=== PATIENT | female | born 1975 | race Hispanic/Latino ===

== ENCOUNTER 2017-10-21 08:20 | Day surgery (SDC) | payer MEDICAID ==
[~2017-10-21 08:20] MED LIST: NACL 0.9% 1000 ML 1,000 ML IV SCH
[2017-10-21] MEDS ORDERED: HURRICAINE ONE 20% TOPICAL SPRAY MM ×2 (08:35→16:12)
--- NOTE | 2017-10-21 08:43 | Anesthesia Consultation ---
Anesthesia Consult and Med Hx Date of service: 10/21/17 - Airway Anesthetic Teeth Evaluation: Edentulous ROM Head & Neck: Adequate Mental/Hyoid Distance: Adequate Mallampati Class: Class II Intubation Access Assessment: Probably Good - Pulmonary Exam CTA: Yes - Cardiac Exam Cardiac Exam: RRR - Pre-Operative Health Status ASA Pre-Surgery Classification: ASA3 Proposed Anesthetic Plan: MAC - Pulmonary Hx Asthma: Yes (inhaler used this morning ) Hx Sleep Apnea: Yes (cpap) - Cardiovascular System Hx Hypertension: Yes - Central Nervous System Hx Psychiatric Problems: Yes (bipolar ) - Gastrointestinal Hx Gastroesophageal Reflux Disease: Yes
--- NOTE | 2017-10-21 08:44 | Anesthesia Day of Surgery ---
Anesthesia Day of Surgery - Day of Surgery Patient Examined: Yes Patient H&P Reviewed: Yes Patient is NPO: Yes
[2017-10-21] MEDS ORDERED: DIPRIVAN 10 MG/ML IV ONE ×2 (08:45)
[2017-10-21] MEDS ORDERED: ZOFRAN ONE (08:46)
--- NOTE | 2017-10-21 09:04 | Operative Report ---
Operative Report Operative Report: EGD Post bypass DATE: 10/21/17 OPERATIVE REPORT - EGD PREOP DIAGNOSIS: gastric dyspepsia POSTOP DIAGNOSIS: same SURGERY: Upper endoscopy. SURGEON: Dr. Torsten Painter. PATROL INSPECTOR: Dr. Lea M.D. TYPE OF ANESTHESIA: MAC. ESTIMATED BLOOD LOSS: None. COMPLICATIONS: None. SPECIMENS REMOVED: None. FINDINGS: 1. normal esophagus 2. gastric pouch - 50ml 3. gastrojejunal anastomosis is 20mm INDICATIONS:INDICATION FOR PROCEDURE: Patient is a 42-year-old F s/p gastric bypass in 2013. The patient is here today for evaluation for revisional surgery. The patient is here for a planned EGD for gastric dyspepsia. PROCEDURE DETAILS: After consent was reviewed, patient was taken back to the operating room where patient was placed in the left lateral decubitus position and a bite block was placed in the mouth. After a time-out was called, MAC anesthesia was initiated. I then passed the endoscope into the patients oropharynx, into the esophagus, visualized the entire esophagus, which was all within normal limits. I then visualized the gastric pouch which was normal and about 50ml in size. The gastrojejunal anastomosis was normal at about 20mm. The proximal portion of the arron limb was normal. I then desufflated the gastric pouch and removed the endoscope. Patient tolerated procedure well and was transferred to recovery room in good and stable condition
[2017-10-21] MEDS ORDERED: PROVENTIL IH ONE (09:05)
--- NOTE | 2017-10-21 09:05 | Discharge Summary ---
Providers - Providers Attending physician: NADIRA DELGADO Primary care physician: DULCE MCKINNEY Hospitalization Procedures: egd Hospital course: 42 y.o. F presented to the hospital for an egd. She tolerated the procedure and was discharged home the same day. Disposition: DC-01 TO HOME OR SELFCARE Core Measure Documentation - Palliative Care Palliative Care/ Comfort Measures: Not Applicable - Core Measures Any of the following diagnoses?: none Exam - Physical Exam Narrative exam: no change from prior - Constitutional Vitals: Temp Pulse Resp BP Pulse Ox 97.9 F 75 13 163/95 100 10/21/17 08:14 10/21/17 08:14 10/21/17 08:14 10/21/17 08:14 10/21/17 08:14 Plan Activity: no restrictions Additional Instructions: follow up in Dr. Stoner office Follow up with: DULCE MCKINNEY MD [Primary Care Provider] - 7 Days
[2017-10-21 10:36] VITALS: BP 143/87
--- NOTE | 2017-10-21 14:13 | Post Anesthesia Evaluation ---
- Post Anesthesia Evaluation Patient Participated: Yes Airway Patent: Yes Stable Respiratory Function: Yes Nausea/Vomiting: No Temp > 96.8F: Yes Pain Manageable: Yes Adequeate Hydration: Yes Anesthesia Complications: No
== END 2017-10-21 08:21 | disposition home or self-care (01) ==
LOC: GIO 08:20
PROVIDERS: ATTEND Specialist
DX: K31.89 Other diseases of stomach and duodenum (principal); I10 Essential (primary) hypertension; J45.909 Unspecified asthma, uncomplicated; G47.33 Obstructive sleep apnea (adult) (pediatric); K21.9 Gastro-esophageal reflux disease without esophagitis; F41.9 Anxiety disorder, unspecified; F32.9 Major depressive disorder, single episode, unspecified; E66.01 Morbid (severe) obesity due to excess calories; Z68.43 Body mass index [BMI] 50.0-59.9, adult; Z99.89 Dependence on other enabling machines and devices; Z98.84 Bariatric surgery status; Z98.890 Other specified postprocedural states; Z90.710 Acquired absence of both cervix and uterus; Z83.3 Family history of diabetes mellitus; Z82.49 Family history of ischemic heart disease and other diseases of the circulatory system; Z79.899 Other long term (current) drug therapy; Z88.0 Allergy status to penicillin; Z88.8 Allergy status to other drugs, medicaments and biological substances
CPT/HCPCS: 43235; J2405; J2704; J7030

== ENCOUNTER 2019-02-16 08:39 | Inpatient (IN) | payer MEDICAID ==
[2019-02-16] MEDS ORDERED: REGLAN IV PRN (08:41)
[2019-02-16] MEDS ORDERED: NORCO PO PRN (08:41)
[2019-02-16] MEDS ORDERED: LEVAQUIN 500MG/100ML 500 MG/100 ML BAG IV NR (09:00)
[2019-02-16] MEDS ORDERED: PROVENTIL IH PRN (09:19)
[2019-02-16] MEDS: BROVANA NEBU IH SCH (09:28)
--- NOTE | 2019-02-16 09:41 | Anesthesia Day of Surgery ---
Anesthesia Day of Surgery - Day of Surgery Patient Examined: Yes Patient H&P Reviewed: Yes Patient is NPO: Yes
--- NOTE | 2019-02-16 09:41 | Anesthesia Consultation ---
Anesthesia Consult and Med Hx Date of service: 02/16/19 - Airway Anesthetic Teeth Evaluation: Edentulous ROM Head & Neck: Adequate Mental/Hyoid Distance: Adequate Mallampati Class: Class II Intubation Access Assessment: Probably Good - Pulmonary Exam CTA: Yes - Cardiac Exam Cardiac Exam: RRR - Pre-Operative Health Status ASA Pre-Surgery Classification: ASA3 Proposed Anesthetic Plan: General (Patient c/o upset stomach and feels like she may have runny stomach. Informed surgical team. ) - Pulmonary Hx Asthma: Yes (ORAL MED AND RESCUE INHALER) SOB: Yes Hx Sleep Apnea: Yes (cpap) - Cardiovascular System Hx Hypertension: Yes (2000) - Central Nervous System Hx Back Pain: Yes Hx Psychiatric Problems: Yes - Gastrointestinal Hx Gastroesophageal Reflux Disease: Yes - Endocrine Hx Hypothyroidism: Yes - Other Systems Hx Obesity: Yes
[2019-02-16] MEDS ORDERED: PROVENTIL IH NR (10:00)
[2019-02-16] MEDS ORDERED: APRESOLINE IV PRN (10:30)
[2019-02-16] MEDS ORDERED: VERSED IV ONE (10:30)
[2019-02-16] MEDS ORDERED: FLAGYL 500 MG/100 ML 500 MG/100 ML BAG IV NR (10:30)
[2019-02-16] MEDS ORDERED: LOVENOX SUB-Q NR (10:30)
[2019-02-16] MEDS ORDERED: XYLOCAINE 1% 20 mL ONE (10:34)
[2019-02-16] MEDS ORDERED: MARCAINE-EPI 0.5%-1:200,000 INFILTRATI ONE ×2 (10:35→13:02)
[2019-02-16] MEDS: LACTATED RINGERS 1,000 ML IV SCH ×2 (10:35→21:57)
[2019-02-16] MEDS: ZOFRAN IV PRN (10:38)
[2019-02-16 10:39] LABS: Basophils # (Auto) 0.1 K/mm3 (0.0-0.1); Eosinophils # (Auto) 0.1 K/mm3 (0.0-0.4); Eosinophils % (Auto) 1.7 % (0.0-4.3); Hematocrit 36.7 % (30.3-42.9); Hemoglobin 11.9 gm/dl (10.1-14.3); Lymphocytes # (Auto) 2.4 K/mm3 (1.2-5.4); Mean Corpuscular HGB Conc 33 % (30-34); Mean Corpuscular Volume 78 fl (79-97); Monocytes # (Auto) 0.5 K/mm3 (0.0-0.8); Monocytes % (Auto) 7.3 % (0.0-7.3); Platelet Count 271 K/mm3 (140-440); Red Blood Count 4.71 M/mm3 (3.65-5.03)
[2019-02-16] MEDS ORDERED: SUBLIMAZE ONE (12:16)
[2019-02-16] MEDS ORDERED: DIPRIVAN 10 MG/ML IV ONE (12:16)
[2019-02-16] MEDS ORDERED: VERSED ONE ×2 (12:25→14:14)
[2019-02-16] MEDS ORDERED: XYLOCAINE 1% 20 mL INFILTRATI ONE (13:02)
[2019-02-16] MEDS ORDERED: NACL 0.9% IR ONE ×2 (13:02→13:04)
[2019-02-16] MEDS ORDERED: BRIDION IV ONE (13:35)
[2019-02-16] MEDS ORDERED: ROBINUL ONE (13:50)
[2019-02-16] MEDS ORDERED: LACTATED RINGERS 1,000 ML ONE (13:50)
[2019-02-16] MEDS ORDERED: XYLOCAINE MPF 2% ONE (13:50)
[2019-02-16] MEDS ORDERED: BLOXIVERZ ONE (13:50)
[2019-02-16] MEDS ORDERED: ZOFRAN ONE (13:50)
[2019-02-16] MEDS ORDERED: DECADRON ONE (13:50)
[2019-02-16] MEDS ORDERED: ZEMURON IV ONE (13:50)
[2019-02-16] MEDS ORDERED: QUELICIN ONE (13:50)
[2019-02-16] MEDS ORDERED: DILAUDID IV PRN (15:13)
[2019-02-16] MEDS: MYLICON PO PRN ×2 (15:28→21:55)
[2019-02-16] MEDS: DILAUDID IV PRN ×2 (18:16→21:59)
[2019-02-16] MEDS: LYRICA PO SCH ×2 (18:18→21:56)
--- NOTE | 2019-02-16 19:52 | Operative Report ---
SURGEON: Leopoldo Sarmiento M.D. MICROBIOLOGY LABORATORY MANAGER: Jeremie Win MD Fellow ; Mayela Dangelo CSA PREOPERATIVE DIAGNOSES: 1. Dyspepsia. 2. Failure of gastrointestinal anastomosis. 3. Gastroenteric reflux. POSTOPERATIVE DIAGNOSES: 1. Dyspepsia. 2. Failure of gastrointestinal anastomosis. 3. Gastroenteric reflux. OPERATION: 1. Laparoscopic partial gastric resection with anastomotic revision. 2. Laparoscopic enteroenterostomy. 3. Upper endoscopy. ANESTHESIA: General endotracheal anesthesia. COMPLICATIONS: None. BLEEDING: Less than 15 mL. SPECIMENS: 1. Small bowel. 2. Stomach. INDICATIONS: The patient is a 43-year-old female who is status post laparoscopic gastric bypass in 2013. She has had significant weight regain as well as complaint of dyspepsia and epigastric pain. A prior EGD demonstrated a pouch of 50 mL and anastomosis of 20 mm. Due to her continued comorbidities and weight regain, she was recommended to have revision. The risks, complications and alternatives were explained to the patient and informed consent was obtained. DESCRIPTION OF PROCEDURE: The patient was brought to the operating room where she was placed in the supine position and underwent general endotracheal intubation. A Smith catheter was placed by circulating nurse. She was prepped and draped in the usual sterile fashion and then a timeout was called to ensure proper patient, indication, operation. She received preoperative antibiotics and DVT prophylaxis. Local analgesia was injected into the left upper quadrant and a small stab incision was made with insertion of the Veress needle. Insufflation pressures were achieved to 18 mmHg. Intra-abdominal access was gained via right lateral quadrant using a 5 mm optical trocar. On intra-abdominal view, there was no injury from the Veress needle. I inspected the anterior abdominal wall, which was free of any adhesions. There was noted a large mesh that was well incorporated from a prior ventral hernia repair. Under direct visualization, a 5 mm port was placed above the umbilicus in the midline as well as left lateral and subxiphoid. A 12 mm trocar was placed to the right of the midclavicular line utilizing her old incisions. The Demi limb was then examined first, run down to the jejunojejunostomy. The biliopancreatic limb and common channel were identified. After ensuring we had the correct limb, the Demi limb was transected at the connection to the jejunojejunostomy and the staple lines were cauterized for hemostasis. After this, the small bowel was measured out from the terminal ileum in a retrograde fashion for 400 cm and marked. Next, a new enteroenterostomy was done with the transected Demi limb to the marked limb utilizing several white staple loads. The staple lines were cauterized after each fire for hemostasis. After this, liver retractor was placed and the patient was repositioned in steep reverse Trendelenburg. She did not have any adhesions from her gastric pouch or Demi limb to the undersurface of the liver. The omentum was dissected free away from the lateral edge of the gastric pouch. She was noted to have a large candy cane limb. After fully the remnant from the gastric pouch up to the hiatus, it was decided that due to the long length of her candy cane limb to transect this. A bowel clamp was placed and an upper endoscopy done. Utilizing the scope as a stent and calibration device, the small bowel at the candy cane limb was transected with a white load stapler and the gastric pouch, which was noted to be dilated, was resected to approximate the length of the scope. The staple lines were cauterized after each fire load. The GJ anastomosis was also noted to be enlarged at 30 mm. Therefore, this was imbricated externally with an 0 Surgidac suture to narrow it to 10 mm. Afterwards, the lower portion of the stomach and Demi limb were examined with the endoscopy and the scope admitted easily into the Demi limb, with the outlet noted to be about 10 mm. After this, the air was suctioned out, the scope was removed and resected piece was removed from the abdominal cavity. A 250 mL of normal saline was instilled into the left and right upper quadrant to help with postoperative gas pain and then all the gas was removed and the ports were all removed under direct visualization. Local analgesia was injected to all the port sites and then the wounds were closed with 4-0 Monocryl. Sterile bandages were placed over top and the patient was then extubated. The Smith catheter was removed at the duration of the case, and counts were correct. FINDINGS: Dilated gastric pouch and dilated gastrojejunal anastomosis. [facility]# [id number] LUIS/JOSE MANUEL NUÑEZ
[2019-02-16] MEDS: ZANAFLEX PO SCH ×2 (21:56→21:57)
[2019-02-16] MEDS: ZOLOFT PO SCH (21:56)
[2019-02-16] MEDS: TORADOL IV SCH (21:57)
[2019-02-16] MEDS ORDERED: SINGULAIR PO SCH (22:00)
[2019-02-16] MEDS ORDERED: REMERON PO SCH (22:00)
[2019-02-17] MEDS: VALTREX PO SCH ×3 (00:04→09:38)
[2019-02-17] MEDS: TORADOL IV SCH ×3 (05:09→15:03)
[2019-02-17 05:39] LABS: Basophils % (Auto) 0.2 % (0.0-1.8); Hematocrit 29.3 % (30.3-42.9); Hemoglobin 9.4 gm/dl (10.1-14.3); Lymphocytes # (Auto) 0.9 K/mm3 (1.2-5.4); Lymphocytes % (Auto) 10.8 % (13.4-35.0); Mean Corpuscular HGB Conc 32 % (30-34); Mean Corpuscular Volume 79 fl (79-97); Monocytes # (Auto) 0.5 K/mm3 (0.0-0.8); Monocytes % (Auto) 5.2 % (0.0-7.3); Platelet Count 256 K/mm3 (140-440); Red Blood Count 3.73 M/mm3 (3.65-5.03)
[2019-02-17] MEDS: MYLICON PO PRN (05:42)
[2019-02-17] MEDS ORDERED: SYNTHROID PO SCH (06:00)
[2019-02-17 06:08] LABS: Alanine Aminotransferase 15 units/L (7-56); Albumin 3.2 g/dL (3.9-5); BUN/Creatinine Ratio 18; Blood Urea Nitrogen 14 mg/dL (7-17); Calcium 8.8 mg/dL (8.4-10.2); Hemolysis Index 4
--- NOTE | 2019-02-17 07:25 | Discharge Summary ---
Providers - Providers Date of Admission: 02/16/19 08:39 Date of discharge: 02/17/19 Attending physician: NADIRA SARMIENTO Hospitalization Reason for admission: postop Condition: Good Procedures: 02/17/19: Laparoscopic partial gastric resection with GJ anastomotic revision, enteroenterostomy Hospital course: 43F admitted after her operation for routine postop care. She had difficulty voiding and required straight catheterization in the early childhood education coordinator of POD1. She needed encouragement to ambulate. She tolerated a CLD. She was dc POD1 after extensive postop instructions. Disposition: DC-01 TO HOME OR SELFCARE Core Measure Documentation - Palliative Care Palliative Care/ Comfort Measures: Not Applicable - Core Measures Any of the following diagnoses?: none - VTE Discharge Requirements Deep Vein Thrombosis/Pulmonary Embolism Present on Admission: No - Acute MA Discharge Requirements Aspirin at discharge: No Reason for no aspirin on DC: Surgical contraindication - Heart Failure Discharge Requirements JENNY/ARB for LVSD if EF <40%: Not Applicable - Stroke Discharge Requirements Statin for LDL = or >70 mg/dl on DC: Not Applicable Exam - Physical Exam Narrative exam: Gen: AAO, NAD Heart: RRR Lungs: CTAB Abd: MO, soft, NT, ND. Bandages present and c/d/i. - Constitutional Vitals: Temp Pulse Resp BP Pulse Ox 98.7 F 95 H 20 133/75 97 02/17/19 01:22 02/17/19 01:22 02/17/19 01:22 02/17/19 01:22 02/17/19 01:22 Plan Diet: clear liquids Wound: keep clean and dry Additional Instructions: Fu as scheduled with Dr Sarmiento Follow up with: GEOVANI BENITO [Other] - 7 Days
[2019-02-17] MEDS ORDERED: PULMICORT IH SCH (08:00)
[2019-02-17 08:16] VITALS: BP 143/77
[2019-02-17] MEDS: PULMICORT IH SCH ×2 (09:28→20:00)
[2019-02-17] MEDS: BROVANA NEBU IH SCH ×2 (09:29→20:00)
[2019-02-17] MEDS: ZOLOFT PO SCH (09:36)
[2019-02-17] MEDS: HCTZ PO SCH ×2 (09:37→10:30)
[2019-02-17] MEDS: LYRICA PO SCH ×2 (09:37→14:53)
[2019-02-17] MEDS: ZANAFLEX PO SCH (09:37)
[2019-02-17] MEDS ORDERED: ZESTRIL PO SCH (10:00)
[2019-02-17] MEDS ORDERED: LOVENOX SUB-Q SCH (10:00)
[2019-02-17] MEDS: ZOFRAN IV PRN (10:09)
== END 2019-02-17 17:00 | disposition home or self-care (01) | DRG 330 ==
LOC: 3A 08:39 → 3B-SURG 15:06
PROVIDERS: ADMIT Specialist; ATTEND Specialist
PROC: 0DB84ZZ Excision of Small Intestine, Percutaneous Endoscopic Approach (ICD-10-PCS; principal; 2019-02-16)
PROC: 0D1A4ZA Bypass Jejunum to Jejunum, Percutaneous Endoscopic Approach (ICD-10-PCS; 2019-02-16)
PROC: 0DB64ZZ Excision of Stomach, Percutaneous Endoscopic Approach (ICD-10-PCS; 2019-02-16)
DX: K91.89 Other postprocedural complications and disorders of digestive system (principal); Z68.43 Body mass index [BMI] 50.0-59.9, adult; K21.9 Gastro-esophageal reflux disease without esophagitis; E66.01 Morbid (severe) obesity due to excess calories; J45.909 Unspecified asthma, uncomplicated; I10 Essential (primary) hypertension; F29 Unspecified psychosis not due to a substance or known physiological condition; E03.9 Hypothyroidism, unspecified; K91.1 Postgastric surgery syndromes; G43.909 Migraine, unspecified, not intractable, without status migrainosus; M79.7 Fibromyalgia; F31.9 Bipolar disorder, unspecified; R11.2 Nausea with vomiting, unspecified; M54.9 Dorsalgia, unspecified; G47.33 Obstructive sleep apnea (adult) (pediatric); R10.13 Epigastric pain; Y83.2 Surgical operation with anastomosis, bypass or graft as the cause of abnormal reaction of the patient, or of later complication, without mention of misadventure at the time of the procedure; Y92.89 Other specified places as the place of occurrence of the external cause; Z90.710 Acquired absence of both cervix and uterus; Z90.49 Acquired absence of other specified parts of digestive tract
CPT/HCPCS: 36415; 80053; 85025; 88307; 94640; G0378; A4217; J0330; J1100; J1170; J1650; J1885; J1956; J2250; J2405; J2704; J2710; J2765; J3010; J7120